=== PATIENT | female | born 1935 | race Caucasian/White ===

== ENCOUNTER 2019-07-03 07:20 | Emergency (ER) | payer MEDICARE, MEDICAID ==
--- NOTE | 2019-07-03 08:42 | EDM.PDOC ---
ED HPI GENERAL MEDICAL PROBLEM - General Chief Complaint: Respiratory Problem Stated Complaint: SHORTNESS OF BREATH Time Seen by Provider: 07/03/19 07:32 Source of Information: Reports: Family History Limitations: Reports: No Limitations - History of Present Illness INITIAL COMMENTS - FREE TEXT/NARRATIVE: History of present illness: []Patient is a resident at [facility] who was sent to the ER by [facility] staff or dehydration. Patient has taken any oral food or fluid for 4 days. Family states that she is DNR with comfort measures only and did not want her transported to the hospital. They are refusing any IV hydration. Like patient in hospice and sent back to [facility]. Review of systems: As per history of present illness and below otherwise all systems reviewed and negative. Past medical history: As per history of present illness and as reviewed below otherwise noncontributory. Surgical history: As per history of present illness and as reviewed below otherwise noncontributory. Social history: No reported history of drug or alcohol abuse. Family history: As per history of present illness and as reviewed below otherwise noncontributory. Physical exam: General: Well developed, extremely dehydrated and cachectic HEENT: Atraumatic, normocephalic, negative for conjunctival pallor or scleral icterus, mucous membranes dry, throat clear, nontender, trachea midline. Lungs: Clear to auscultation, breath sounds equal bilaterally, chest nontender. Heart: S1S2, regular, negative for clicks, rubs, or JVD. Abdomen: NABS, Soft, nondistended, nontender. Negative for masses or hepatosplenomegaly. Negative for costovertebral tenderness. Pelvis: Stable nontender. Genitourinary: Deferred. Rectal: Deferred. Extremities: Atraumatic, Neuro: obtunded Skin:warm and dry Diagnostics: none Therapeutics: none ED Course: hospice consult was placed and they came to speak with family Impression: hospice placement Prescriptions: none Plan: transfer back to [facility] Definitive disposition and diagnosis as appropriate pending reevaluation and review of above. - Related Data Allergies Allergy/AdvReac Type Severity Reaction Status Date / Time iodine Allergy Anaphylactic Verified 07/03/19 07:31 Shock shellfish derived Allergy Anaphylactic Verified 07/03/19 07:31 Shock Home Meds: Home Meds Bisacodyl [Dulcolax] 10 mg PO DAILY 02/26/16 [History] Acetaminophen [Tylenol] 325 mg PO ASDIRECTED 07/03/19 [History] Aspirin 81 mg PO DAILY 07/03/19 [History] Donepezil HCl [Donepezil HCl Odt] 10 mg PO DAILY 07/03/19 [History] Loperamide HCl [Imodium A-D] 2 mg PO ASDIRECTED 07/03/19 [History] Magnesium Hydroxide [Milk of Magnesia] 30 ml PO DAILY 07/03/19 [History] Past Medical History HEENT History: Reports: None Cardiovascular History: Reports: None Respiratory History: Reports: None Gastrointestinal History: Reports: None Genitourinary History: Reports: Urinary Incontinence UMBRELLA MENDER History: Reports: None Musculoskeletal History: Reports: Osteoarthritis, Other (See Below) Other Musculoskeletal History: weakness, history of falling, other lack of corridiation Neurological History: Reports: None Psychiatric History: Reports: Alzheimers Disease, Anxiety, Dementia, Depression Endocrine/Metabolic History: Reports: None Hematologic History: Reports: None Immunologic History: Reports: None Oncologic (Cancer) History: Reports: None Dermatologic History: Reports: None - Past Surgical History Head Surgeries/Procedures: Reports: None HEENT Surgical History: Reports: None Cardiovascular Surgical History: Reports: None Respiratory Surgical History: Reports: None GI Surgical History: Reports: None Female Surgical History: Reports: None Endocrine Surgical History: Reports: None Neurological Surgical History: Reports: None Musculoskeletal Surgical History: Reports: None Oncologic Surgical History: Reports: None Dermatological Surgical History: Reports: None Social & Family History - Family History Family Medical History: Noncontributory - Tobacco Use Smoking Status *Q: Unknown Ever Smoked ED ROS GENERAL - Review of Systems Review Of Systems: ROS reveals no pertinent complaints other than HPI. ED EXAM, GENERAL - Physical Exam Exam: See Below Course - Vital Signs Last Recorded V/S: Last Vital Signs Temp 96.7 F 07/03/19 07:28 Pulse 112 H 07/03/19 09:01 Resp 34 H 07/03/19 09:01 BP 104/63 07/03/19 09:01 Pulse Ox 95 07/03/19 09:01 - Orders/Labs/Meds Orders: Active Orders 24 hr Category Date Time Status Consult to Hospice [CONS] Routine Cons 07/03/19 07:51 Active Departure - Departure Time of Disposition: 08:41 Disposition: Home, Self-Care 01 Condition: Good Clinical Impression: Dehydration, Hospice care patient - Discharge Information *PRESCRIPTION DRUG MONITORING PROGRAM REVIEWED*: Not Applicable *COPY OF PRESCRIPTION DRUG MONITORING REPORT IN PATIENT JAYESH: Not Applicable Instructions: Dehydration, Elderly, [id number] Referrals: Jose Natarajan MD [Primary Care Provider] - Forms: ED Department Discharge - My Orders Last 24 Hours: My Active Orders 07/03/19 07:51 Consult to Hospice [CONS] Routine - Assessment/Plan Last 24 Hours: My Active Orders 07/03/19 07:51 Consult to Hospice [CONS] Routine
[2019-07-03 09:02] VITALS: BP 104/63; PULSE 112
== END 2019-07-03 09:03 | disposition home or self-care (01) ==
LOC: MW.ED 07:20
DX: E86.0 Dehydration (principal); Z79.82 Long term (current) use of aspirin; Z79.899 Other long term (current) drug therapy; Z91.013 Allergy to seafood; Z88.8 Allergy status to other drugs, medicaments and biological substances
CPT/HCPCS: 99284